=== PATIENT | female | born 1945 | race Caucasian/White ===

== ENCOUNTER → 2016-09-05 | Outpatient (CLI) | payer OTHER | LOC: FIMAGING 11:19 | DX: Z12.31 Encounter for screening mammogram for malignant neoplasm of breast (principal); Z80.3 Family history of malignant neoplasm of breast | CPT/HCPCS: G0202 ==

== ENCOUNTER → 2018-05-31 | Outpatient (CLI) | payer OTHER | LOC: FIMAGING 12:02 | PROVIDERS: ATTEND Physician Assistant Medical | DX: Z12.31 Encounter for screening mammogram for malignant neoplasm of breast (principal); Z80.3 Family history of malignant neoplasm of breast ==

== ENCOUNTER → 2018-09-05 | Outpatient (CLI) | payer OTHER ==
[~2018-09-05] MED LIST: IOPAMIDOL (ISOVUE-300) 100 ML BTL ONE
== END ==
LOC: FIMAGING 09:25
PROVIDERS: ATTEND Surgery
DX: K57.20 Diverticulitis of large intestine with perforation and abscess without bleeding (principal)
CPT/HCPCS: 74177-PO; 82565-PO; Q9967

== ENCOUNTER 2018-12-04 08:49 | Inpatient (IN) | payer OTHER ==
[~2018-12-04 08:49] MED LIST changes: -IOPAMIDOL (ISOVUE-300) 100 ML BTL ONE; +cefOXitin SODIUM 2 GM in NS 100 ML IV ONE
--- NOTE | 2018-12-04 10:05 | PDHPUP ---
History & Physical Update H&P update statement: This history and physical update is based on an assessment of the patient which was completed after admission or registration (within 24 hours), but prior to the surgery/procedure. H&P update: H&P reviewed & patient examined, no change in patient's condition since H&P completed
[2018-12-04] MEDS ORDERED: LR 1,000 ML IV ONE (12:52)
[2018-12-04 13:27] LABS: PLATELET COUNT 204 10^3/uL (150-400)
--- NOTE | 2018-12-04 13:39 | PDANEPAE ---
ANE Past Medical History - Cardiovascular History Hx Hypertension: No Hx Arrhythmias: No Hx Chest Pain: No Hx Coronary Artery / Peripheral Vascular Disease: Yes Hx CHF / Valvular Disease: No Hx Palpitations: No Cardiovascular History Comment: CAD. 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 diarrhea- metamucil and dietary modifications have helped - Other Health History Other Health History: lyme disease. wears glasses - Chronic Pain History Chronic Pain: No - Surgical History Prior Surgeries: bilateral breast lumpectomies ANE Review of Systems Review of Systems: - Exercise capacity METS (RN): 5 METS ANE Patient History - Allergies Allergies/Adverse Reactions: Sulfa (Sulfonamide Antibiotics) Allergy (Verified 11/29/18 14:17) Rash - Home Medications Home Medications: Aspirin [Aspirin 81mg (*)] 81 mg PO HS 11/28/18 [Last Taken 11/29/18] Cholecalciferol Vit D3 [Vitamin D3 (*)] 1,000 units PO DAILY 11/28/18 [Last Taken 11/29/18] Herbals/Supplements -Info Only 1 ea PO DAILY 11/28/18 [Last Taken 11/29/18] Niacin [Niacin 500 mg (*)] 500 mg PO HS 11/28/18 [Last Taken 11/29/18] [place]-3 Fatty Acids [Fish Oil 1000 mg (*)] 1,000 mg PO DAILY 11/28/18 [Last Taken 11/29/18] Simvastatin [Zocor] 40 mg PO HS 11/28/18 [Last Taken 12/02/18] Vitamin B Complex [Vitamin B Complex (OTC)] 1 each PO DAILY 11/28/18 [Last Taken 11/29/18] - NPO status NPO Since - Liquids (Date): 12/04/18 NPO Since - Liquids (Time): 06:40 NPO Since - Solids (Date): 12/03/18 NPO Since - Solids (Time): 10:00 - Smoking Hx Smoking Status: Never smoked - Family Anes Hx Family Hx Anesthesia Complications: none ANE Labs/Vital Signs - Labs Result Diagrams: 12/04/18 13:15 12/04/18 13:15 - Vital Signs Blood Pressure: 155/70 Heart Rate: 68 Respiratory Rate: 18 O2 Sat (%): 96 Height: 162.56 cm Weight: 45.359 kg ANE Physical Exam - Airway Neck exam: FROM Mallampati Score: Class 1 Mouth exam: normal dental/mouth exam - Pulmonary Pulmonary: no respiratory distress - Cardiovascular Cardiovascular: regular rate and rhythym - ASA Status ASA Status: II ANE Anesthesia Plan Anesthesia Plan: general endotracheal anesthesia Regional Anesthesia: single shot NB
[2018-12-04] MEDS ORDERED: BUPIVACAINE 0.5% 30 ML SDV ONE ×2 (14:10→17:44)
[2018-12-04] MEDS ORDERED: ROPIVACAINE HCL 20 MG/10 ML INJ EP ONE (14:27)
[2018-12-04] MEDS ORDERED: PROPOFOL/EMULSION 500 MG/50 ML BOTTLE IV ONE (14:30)
[2018-12-04] MEDS ORDERED: ROCURONIUM 100 MG/10 ML VIAL ONE (14:37)
[2018-12-04] MEDS ORDERED: KETOROLAC 30 MG/1 ML SDV ONE (14:38)
[2018-12-04] MEDS ORDERED: ONDANSETRON 4 MG/2 ML VIAL ONE (14:38)
[2018-12-04] MEDS ORDERED: DEXAMETHASONE 4 MG/ML VIAL ONE (14:38)
[2018-12-04] MEDS ORDERED: METOCLOPRAMIDE 10 MG/2 ML VIAL ONE (14:38)
[2018-12-04] MEDS ORDERED: IOPAMIDOL (ISOVUE-M 300) 15 ML VIAL ONE (17:12)
[2018-12-04] MEDS ORDERED: NEOSTIGMINE METHYLSULFATE 10 MG/10 ML MDV ONE (17:36)
[2018-12-04] MEDS ORDERED: GLYCOPYRROLATE 0.2 MG/1 ML VIAL ONE ×2 (17:36)
[2018-12-04] MEDS ORDERED: PROPOFOL 200 MG/20 ML VIAL ONE (18:16)
[2018-12-04] MEDS ORDERED: NALOXONE HCL 0.4 MG/ML INJ IVP PRN ×2 (18:34→18:57)
[2018-12-04] MEDS ORDERED: HYDROmorphONE/DILAUDID 6 MG/30 ML PCA IV PRN (18:34)
--- NOTE | 2018-12-04 18:37 | POSTOPPROG ---
Post Op Note Date of Operation: 12/04/18 Surgeon: Pete Lemon State Archivist: Annamaria Villafuerte Anesthesiologist: Corey Naidu Anesthesia: GET(General Endotracheal) Pre-op Diagnosis: perforated diverticulitis controlled c abx, umbilical hernia Post-op Diagnosis: same Procedure: robotic assisted sigmoid colectomy, open umb hernia repair (no mesh) Findings: sigmoid adhered in L pelvis Inf/Abcess present in the surg proc area at time of surgery?: Yes Depth: Organ Space EBL: 50-100 Complications: none Bowel Protocol: Yes Clean Closure Performed: Yes Specimen(s): to pathology
[2018-12-04] MEDS ORDERED: fentaNYL 100 MCG/2 ML INJ IVP PRN (18:57)
[2018-12-04] MEDS ORDERED: ONDANSETRON 4 MG/2 ML VIAL IVP PRN (18:57)
[2018-12-04] MEDS ORDERED: ALBUTEROL 3 ML DEYVIAL IH PRN (18:57)
--- NOTE | 2018-12-04 18:57 | POSTANESTH ---
Post Anesthetic Evaluation Cardiovascular Status: Similar to Pre-Op Cond Respiratory Status: Similar to Pre-op Cond. Level of Consciousness/Mental Status: Can Participate in Eval, Mildly Sleepy, Arousable Pain Control: Adequate, Prn Tx Ordered Nausea/Vomiting Control: Adequate, Prn Tx Ordered Complications Possibly Related to Anesthesia: None Noted
[2018-12-04] MEDS: ONDANSETRON 4 MG/2 ML VIAL IVP PRN (20:37)
[2018-12-04] MEDS: ATORVASTATIN CALCIUM 20 MG TAB PO SCH (21:12)
[2018-12-04] MEDS: ASPIRIN 81 MG CHEWABLE TAB PO SCH ×2 (21:12→21:16)
[2018-12-04] MEDS: NIACIN 500 MG TAB PO SCH (21:12)
[2018-12-04] MEDS: DOCUSATE SODIUM 100 MG CAP PO SCH (21:12)
[2018-12-04] MEDS: NS W/ 20 KCl/L 1,000 ML IV SCH (21:16)
[2018-12-05] MEDS: NS W/ 20 KCl/L 1,000 ML IV SCH ×2 (04:08→18:27)
--- NOTE | 2018-12-05 08:59 | PDMN ---
Medical Necessity Medical necessity: [facility]: S232 bowel surgery: colectomy, partial with or without ostomy by Lap 3 days: INPT only- OP: robotic assist. sigmoid colectomy, open umb. hernia repair
--- NOTE | 2018-12-05 09:20 | SOAPPROG ---
SOAP Progress Note Assessment/Plan: Assessment/Plan: 73 Y F s/p robotic assisted sigmoid colectomy for subacute perforated diverticulitis. POD#1. Doing well. Clear liquids. Buff cap IVF. Davison out, on void trial. Continue TRANSMISSION WORKER. OOB. Continue routine post op care. S: pain controlled. hasn't voided or passed gas yet. O: alert, nad mmm no wob rrr abd soft, wounds intact, +BS 12/05/18 09:16 Objective: Vital Signs Temp Pulse Resp BP Pulse Ox 36.9 C 80 18 118/57 L 95 12/05/18 08:00 12/05/18 08:00 12/05/18 08:00 12/05/18 08:00 12/05/18 08:00 Laboratory Results 12/05/18 04:46 12/05/18 04:46 12/04/18 12/05/18 12/06/18 05:59 05:59 05:59 Intake Total 1000 Output Total 250 225 Balance 750 -225 ICD10 Worksheet Patient Problems: Problems Problem Status Onset S/P partial colectomy Acute - ICD10 Problem Qualifiers (1) S/P partial colectomy
[2018-12-05] MEDS: DOCUSATE SODIUM 100 MG CAP PO SCH ×2 (10:38→19:47)
--- NOTE | 2018-12-05 11:20 | GOP ---
[f rep st] OPERATIVE REPORT DATE OF OPERATION: 12/04/2018 SURGEON: Pete Lemon MD SENIOR ADULTS DIRECTOR: ENRICO Lopez. ANESTHESIOLOGIST: Dr. Corey Naidu. PREOPERATIVE DIAGNOSIS: History of diverticulitis with abscess. Also umbilical hernia POSTOPERATIVE DIAGNOSIS: History of diverticulitis with abscess. Also umbilical hernia PROCEDURE PERFORMED: Robotic-assisted laparoscopic low anterior sigmoid colectomy.also umbilical hernia repair FINDINGS: Patient was found to have remnants of an old pelvic abscess. She had marked diverticulosis and diverticulitis of the sigmoid colon, but a good ample colon for anastomosis in the pelvis. DESCRIPTION OF PROCEDURE: The patient was taken to the operating room where she received satisfactory general endotracheal anesthesia by Dr. Naidu. She was placed in the supine position in low stirrups, prepped and draped in the usual sterile fashion. A short incision was made in the right upper quadrant. Veress needle was introduced. Trocar was introduced. Good visualization was obtained. Three other trocars were placed across the upper abdomen under direct vision. The robot was then brought in and docked and the area of concern was targeted and then the robot was positioned. Instruments were introduced. The sigmoid colon was then mobilized by dividing the lateral peritoneal reflection and breaking down the adhesions from the previous abscess site. The sigmoid colon was fairly stuck down in the pelvis, but this was easy enough to free up and deliver out of the pelvis. The small bowel attachments were freed up and retracted away as well. After adequate elevation of the sigmoid colon, the sigmoid mesentery was divided with the Harmonic scalpel with care to avoid injury to the ureter which was clearly seen and protected. The major sigmoidal vessels were hemoclipped before being divided with the Harmonic scalpel, and the rectosigmoid junction was then divided with a robotic stapler. The left colon was further divided up the left gutter toward the splenic flexure to improve its mobility. A short suprapubic incision was then made. Dissection was carried down to the rectus sheath and then the rectus muscles were . The abdomen was entered. A wound protector was used, and the end of the colon was brought out through this incision and placed proximal so all the diverticulosis was selected and the bowel was divided with a pursestring suture at a point where the bowel wall would bleed adequately when transected. The specimen was removed and sent to Pathology. A 25 EEA cap was introduced in the proximal colon which was reasonably small. This was secured in place with a pursestring suture. That was returned back into the abdomen and the abdominal incision was temporarily closed with towel clips. Pneumoperitoneum was reestablished. The EEA was introduced through the rectum and positioned appropriately and the post was brought out adjacent to the suture line. The 2 sections of bowel were connected. The EEA was then closed and fired and gently removed. The anastomosis was checked multiple times under water with air insufflation, and there was no evidence of any leak. It was slightly disturbing that one of the proximal rings was incomplete by the time it was removed from the EEA, and therefore, the anastomosis was rechecked multiple times at different angles with air insufflation with no evidence of any leakage. Wound was then irrigated. Trocars removed under direct vision. The suprapubic incision was closed with 0 Vicryl for the peritoneum and a running 0 PDS suture for the rectus sheath, 3-0 Vicryl for the subcu, 4-0 Monocryl subcuticular stitch for the skin, and all layers were infiltrated with 0.5% Marcaine. Trocar sites were closed with 0 Vicryl for the fascia and 4-0 Monocryl subcuticular stitches. All layers were infiltrated with 0.5% Marcaine. Attention was then turned to a small umbilical hernia which was approached through a small infraumbilical incision hernia sac was dissected free his contents reduced in the defect was closed with and whole neural on figure-of- eight sutures. She tolerated the procedure quite well. She was taken to recovery room in good condition. There were no complications. Blood loss negligible. Copy requested to: ENRICO Thurman /[id number]/MODL MTDD
[2018-12-05] MEDS: ONDANSETRON 4 MG/2 ML VIAL IVP PRN (18:27)
[2018-12-05] MEDS: NIACIN 500 MG TAB PO SCH (19:47)
[2018-12-05] MEDS: ASPIRIN 81 MG CHEWABLE TAB PO SCH (19:48)
[2018-12-05] MEDS: ATORVASTATIN CALCIUM 20 MG TAB PO SCH (19:48)
[2018-12-06] MEDS: NS W/ 20 KCl/L 1,000 ML IV SCH ×2 (08:21→21:00)
[2018-12-06] MEDS: ENOXAPARIN 40 MG/0.4 ML SYR SC SCH (08:22)
[2018-12-06] MEDS: DOCUSATE SODIUM 100 MG CAP PO SCH ×2 (08:22→20:50)
[2018-12-06] MEDS: OXYCODONE/APAP 5/325 TAB PO PRN ×2 (08:27→12:00)
--- NOTE | 2018-12-06 11:10 | SOAPPROG ---
SOAP Progress Note Assessment/Plan: Assessment/plan: 73 Y F s/p robotic assisted sigmoid colectomy for subacute perforated diverticulitis. POD#2 Doing well. Tolerating clears. 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 Continue routine post op care. Dispo: likely home tomorrow. S: pain controlled. passing flatus. O: alert, nad mmm no wob rrr abd soft, wounds intact, +BS 12/06/18 11:08 Objective: Vital Signs Temp Pulse Resp BP Pulse Ox 36.6 C 61 16 118/49 L 90 L 12/06/18 09:07 12/06/18 09:07 12/06/18 09:07 12/06/18 09:07 12/06/18 09:07 Laboratory Results 12/05/18 04:46 12/05/18 04:46 12/05/18 12/06/18 12/07/18 05:59 05:59 05:59 Intake Total 1000 1150 Output Total 250 225 Balance 750 925 ICD10 Worksheet Patient Problems: Problems Problem Status Onset S/P partial colectomy Acute
[2018-12-06] MEDS: ONDANSETRON 4 MG/2 ML VIAL IVP PRN (12:00)
[2018-12-06] MEDS ORDERED: IBUPROFEN 200 MG TAB PO PRN (12:43)
[2018-12-06] MEDS: ATORVASTATIN CALCIUM 20 MG TAB PO SCH (20:50)
[2018-12-06] MEDS: NIACIN 500 MG TAB PO SCH (20:50)
[2018-12-06] MEDS: ASPIRIN 81 MG CHEWABLE TAB PO SCH (20:50)
[2018-12-07] MEDS: NS W/ 20 KCl/L 1,000 ML IV SCH ×2 (05:15→17:19)
[2018-12-07] MEDS: ENOXAPARIN 40 MG/0.4 ML SYR SC SCH (08:58)
[2018-12-07] MEDS: DOCUSATE SODIUM 100 MG CAP PO SCH ×2 (08:58→20:55)
--- NOTE | 2018-12-07 09:03 | ASMTCMCOM ---
CM Note CM Note Notes: Patient is POD #3 robotic assisted sigmoid colectomy. She is doing well, and diet has been advanced to light diet. I anticipate she will d/c home independently with her soon. No CM needs identified. Date Signed: 12/07/2018 09:02 AM Electronically Signed By:Cindy Riggins RN
[2018-12-07 09:29] LABS: PLATELET COUNT 140 10^3/uL (150-400)
--- NOTE | 2018-12-07 10:58 | SOAPPROG ---
SOAP Progress Note Assessment/Plan: Assessment/plan: 73 Y F s/p robotic assisted sigmoid colectomy for subacute perforated diverticulitis. POD#3 Had some nausea with solid food yesterday. Thinks it is because of the narcotics. Now using tylenol and ibuprofen for pain. Slightly febrile today. Abdominal xray shows pneumoperitoneum, but this could be expected postoperative finding. 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 OOB. Continue routine post op care. Dispo: likely home tomorrow. S: Feels "uncomfortable", but denies pain. Passing flatus. No BM yet. O: alert, nad mmm no wob rrr abd soft, wounds intact, +BS 12/07/18 10:56 Objective: Vital Signs Temp Pulse Resp BP Pulse Ox 37.2 C 75 16 115/60 90 L 12/07/18 07:26 12/07/18 07:26 12/07/18 07:26 12/07/18 07:26 12/07/18 07:26 Laboratory Results 12/07/18 09:05 12/05/18 04:46 12/06/18 12/07/18 12/08/18 05:59 05:59 05:59 Intake Total 1150 1950 Output Total 225 Balance 925 1950 ICD10 Worksheet Patient Problems: Problems Problem Status Onset S/P partial colectomy Acute
[2018-12-07] MEDS: ACETAMINOPHEN 325 MG TAB PO PRN (17:17)
[2018-12-07] MEDS: NIACIN 500 MG TAB PO SCH (20:55)
[2018-12-07] MEDS: ATORVASTATIN CALCIUM 20 MG TAB PO SCH (20:55)
[2018-12-07] MEDS: ASPIRIN 81 MG CHEWABLE TAB PO SCH (20:55)
[2018-12-08] MEDS: DOCUSATE SODIUM 100 MG CAP PO SCH ×2 (09:26→20:20)
[2018-12-08] MEDS: ENOXAPARIN 40 MG/0.4 ML SYR SC SCH (09:26)
[2018-12-08] MEDS ORDERED: SENNOSIDES 1 TAB PO PRN (12:28)
--- NOTE | 2018-12-08 15:21 | SOAPPROG ---
ISABELLE Progress Note Assessment/Plan: Assessment: 73 Y F s/p robotic assisted sigmoid colectomy for subacute perforated diverticulitis. Doing well Will advance diet monitor abdominal distension Ambulate Maybe home tomorrow S: Better today O: CTAB RRR Distension, soft, incisions cdi Plan: 12/08/18 15:20 Objective: Vital Signs Temp Pulse Resp BP Pulse Ox 37.3 C 67 16 153/71 H 93 12/08/18 08:00 12/08/18 08:00 12/08/18 08:00 12/08/18 09:54 12/08/18 08:00 Laboratory Results 12/07/18 09:05 12/05/18 04:46 12/07/18 12/08/18 12/09/18 05:59 05:59 05:59 Intake Total 1950 1001 250 Output Total 1700 Balance 1950 -699 250 ICD10 Worksheet Patient Problems: Problems Problem Status Onset S/P partial colectomy Acute
[2018-12-08] MEDS: ASPIRIN 81 MG CHEWABLE TAB PO SCH (20:20)
[2018-12-08] MEDS: ACETAMINOPHEN 325 MG TAB PO PRN (20:20)
[2018-12-08] MEDS: NIACIN 500 MG TAB PO SCH (20:20)
[2018-12-08] MEDS: ATORVASTATIN CALCIUM 20 MG TAB PO SCH (20:20)
[2018-12-09 05:14] LABS: PLATELET COUNT 185 10^3/uL (150-400)
[2018-12-09] MEDS: DOCUSATE SODIUM 100 MG CAP PO SCH ×2 (08:04→20:26)
[2018-12-09] MEDS: ENOXAPARIN 40 MG/0.4 ML SYR SC SCH (08:04)
[2018-12-09] MEDS: HYDROCORTISONE 1% CREAM TP SCH ×2 (16:17→20:30)
--- NOTE | 2018-12-09 18:09 | SOAPPROG ---
ISABELLE Progress Note Assessment/Plan: Assessment: 73 Y F s/p robotic assisted sigmoid colectomy for subacute perforated diverticulitis. Doing well passing some blood yesterday and today distension improved Ambulate Likely home tomorrow S: Better today, although had some clots pass O: CTAB RRR Distension improved, soft, incisions cdi, BS present Plan: 12/08/18 15:20 12/09/18 18:08 12/09/18 18:10 Objective: Vital Signs Temp Pulse Resp BP Pulse Ox 37.2 C 79 18 128/63 H 94 12/09/18 16:00 12/09/18 16:00 12/09/18 16:00 12/09/18 16:00 12/09/18 16:00 Laboratory Results 12/09/18 04:37 12/09/18 04:37 12/08/18 12/09/18 12/10/18 05:59 05:59 05:59 Intake Total 1001 450 Output Total 1700 Balance -699 450 ICD10 Worksheet Patient Problems: Problems Problem Status Onset S/P partial colectomy Acute
[2018-12-09] MEDS: ASPIRIN 81 MG CHEWABLE TAB PO SCH (20:26)
[2018-12-09] MEDS: ATORVASTATIN CALCIUM 20 MG TAB PO SCH (20:26)
[2018-12-09] MEDS: NIACIN 500 MG TAB PO SCH (20:26)
[2018-12-09] MEDS: ACETAMINOPHEN 325 MG TAB PO PRN (20:28)
[2018-12-10 08:07] VITALS: BP 118/62
[2018-12-10] MEDS: HYDROCORTISONE 1% CREAM TP SCH (08:58)
[2018-12-10] MEDS: DOCUSATE SODIUM 100 MG CAP PO SCH ×2 (08:59→15:26)
[2018-12-10] MEDS: ACETAMINOPHEN 325 MG TAB PO PRN (09:02)
[2018-12-10] MEDS: ENOXAPARIN 40 MG/0.4 ML SYR SC SCH (11:37)
--- NOTE | 2018-12-10 14:15 | ASMTCMCOM ---
CM Note CM Note Notes: Pt improving and may be ready for d/c tomorrow. Anticipate she will d/c with no CM needs. D/C plan: home independent Date Signed: 12/10/2018 02:14 PM Electronically Signed By:LENNY Beckman
--- NOTE | 2018-12-10 14:30 | SOAPPROG ---
ISABELLE Progress Note Assessment/Plan: Assessment: 73 Y F s/p robotic assisted sigmoid colectomy for subacute perforated diverticulitis. Doing well DC home S: Better today, O: CTAB RRR soft, incisions cdi, BS present Plan: 12/08/18 15:20 12/09/18 18:08 12/09/18 18:10 12/10/18 14:30 Objective: Vital Signs Temp Pulse Resp BP Pulse Ox 37.0 C 73 18 118/62 93 12/10/18 08:00 12/10/18 08:00 12/10/18 08:00 12/10/18 08:00 12/10/18 08:00 Laboratory Results 12/09/18 04:37 12/09/18 04:37 12/09/18 12/10/18 12/11/18 05:59 05:59 05:59 Intake Total 450 650 Balance 450 650 ICD10 Worksheet Patient Problems: Problems Problem Status Onset S/P partial colectomy Acute
--- NOTE | 2018-12-10 14:57 | ASDISCHSUM ---
Discharge Information Plan Status:Home with No Needs Medically Cleared to Leave:12/10/2018 Discharge Date:12/10/2018 CM D/C Disposition:Home, Routine, Self-Care ADT D/C Disposition:Home, Routine, Self-Care Projected Discharge Date:12/10/2018 Transportation at D/C:Family Discharge Delay Reason: Follow-Up Date:12/10/2018 Discharge Slot: Final Diagnosis: Placement Information Patient Contact Information Contact Name:DELL Relationship: Address:[address] City:[place] Alternate Phone: [facility]/Zip Code:[place] [address] Email: Financial Information Financial Class:HMO and PPO Plans Primary Plan Desc:[facility] Primary Plan Number:[id number] Secondary Plan Desc: Secondary Plan Number: Assessment Information LACE LACE Length of stay for Answers: 4-6 days current admission Acuity / Level of Answers: Yes Care: Did the patient have an inpatient admission? Comorbidities - select Answers: Coronary Artery Disease all that apply Other Notes: HLD; Diverticulitis # of Emergency department Answers: 0 visits in the last 6 months Score: 10 Date Signed: 12/10/2018 02:57 PM Electronically Signed By:LENNY Beckman [facility] CM Progress Note CM Note CM Note Notes: Patient is POD #3 robotic assisted sigmoid colectomy. She is doing well, and diet has been advanced to light diet. I anticipate she will d/c home independently with her soon. No CM needs identified. Date Signed: 12/07/2018 09:02 AM Electronically Signed By:Cindy Riggins RN [facility] CM Progress Note CM Note CM Note Notes: Pt improving and may be ready for d/c tomorrow. Anticipate she will d/c with no CM needs. D/C plan: home independent Date Signed: 12/10/2018 02:14 PM Electronically Signed By:LENNY Beckman Case Management Discharge Plan Note Case Management Discharge Discharge Order Complete? Answers: Yes Patient to Obtain Answers: via Family Medications Transportation Arranged Answers: Family/Friends Discharge Comments Notes: Pt is discharging home with her today instead of tomorrow, She has no CM needs. Date Signed: 12/10/2018 02:56 PM Electronically Signed By:LENNY Beckman Intervention Information
== END 2018-12-10 15:32 | disposition home or self-care (01) | DRG 331 ==
LOC: F3E 12:39 → F1N 16:57
PROVIDERS: ADMIT Surgery; ATTEND Surgery
PROC: 8E0W4CZ Robotic Assisted Procedure of Trunk Region, Percutaneous Endoscopic Approach (ICD-10-PCS; principal; 2018-12-04 14:15)
PROC: 0WQF0ZZ Repair Abdominal Wall, Open Approach (ICD-10-PCS; principal; 2018-12-04 14:15)
PROC: 0DTN4ZZ Resection of Sigmoid Colon, Percutaneous Endoscopic Approach (ICD-10-PCS; principal; 2018-12-04 14:15)
DX: K57.20 Diverticulitis of large intestine with perforation and abscess without bleeding (principal); J45.909 Unspecified asthma, uncomplicated; I25.10 Atherosclerotic heart disease of native coronary artery without angina pectoris; E78.5 Hyperlipidemia, unspecified; E05.00 Thyrotoxicosis with diffuse goiter without thyrotoxic crisis or storm; R39.15 Urgency of urination; Z85.820 Personal history of malignant melanoma of skin
CPT/HCPCS: J0694; J1100; J1170; J1650; J1885; J2405; J2704; J2765; J2795; Q9967